=== PATIENT | female | born 1940 | race Caucasian/White ===

== ENCOUNTER 2016-10-22 08:33 | Day surgery (SDC) | payer MEDICARE ==
[~2016-10-22 08:33] MED LIST: EPINEPHRINE INJ 1 MG/10 ML DISP.SYRIN ONE; FLUMAZENIL INJ 0.5 MG/5 ML VIAL IV ONE; GLUCAGON,HUMAN RECOMB 1 MG INJ ONE; GLYCOPYRROLATE INJ 0.4 MG/2 ML VIAL ONE; MIDAZOLAM 2 MG/2 ML INJ ONE; NALOXONE HCL INJ/PF 0.4 MG/1 ML SDV ONE; ONDANSETRON HCL INJ/PF 4 MG/2 ML SDV ONE; PROMETHAZINE HCL INJ 25 MG/1 ML VIAL ONE
[2016-10-22] MEDS: FENTANYL CITRATE INJ/PF 100 MCG/2 ML AMPUL ONE ×2 (09:30→09:42)
--- NOTE | 2016-10-22 10:09 | Operative Report ---
Operative Report DATE OF SURGERY: 10/22/16 PREOPERATIVE DIAGNOSIS: Personal history of colon polyps POSTOPERATIVE DIAGNOSIS: Extensive diverticulosis of the sigmoid colon OPERATION: Total colonoscopy cecum with photodocumentation SURGEON: KRISTOPHER LOZANO ANESTHESIA: Moderate Sedation TISSUE REMOVED OR ALTERED: None COMPLICATIONS: None ESTIMATED BLOOD LOSS: none INTRAOPERATIVE FINDINGS: See below PROCEDURE: Obtaining informed consent the patient was taken from the preoperative holding area to the main endoscopy suite where monitoring devices were attached to the patient. Plan and surgical timeout were conducted The patient was placed in the left lateral decubitus position with knees to chest. A perianal examination was performed. There was no visible or palpable anorectal pathology. Sphincter tone was felt to be normal. The flexible adult colonoscope was advanced through the anal rectal canal, all the way to the cecum. Utilization of the cecum was achieved and the ileocecal valve, the appendiceal orifice and transillumination of the anterior abdominal wall. This was an excellent study on the well-prepped bowel. The colonoscope was withdrawn slowly and methodically checked and the mucosa carefully. There was no evidence of tumor, stricture, bleeding or polyp. There were extensive sigmoid diverticuloses. The scope was slowly withdrawn through the anal rectal canal. Complete visualization of the rectum was achieved with photodocumentation. The scope was withdrawn to the patient's anus. The patient tolerated the procedure well and was taken to the recovery area in stable condition. For surveillance guidelines, patient did appropriate candidate for follow-up colonoscopy in 10 years
--- NOTE | 2016-10-22 10:10 | PDOC DISCHARGE SUMMARY ---
Discharge Summary (SDC) - Discharge Final Diagnosis: Sigmoid diverticulosis Date of Surgery: 10/22/16 Discharge Date: 10/22/16 Condition: Good Treatment or Instructions: [facility] [place] [id number] POST ENDOSCOPY DISCHARGE INSTRUCTIONS 1. Diet: Start clear liquids that a regular diet as tolerated. 2. Resume all preoperative medications. All oral anticoagulants and aspirins can be resumed 24 hours after procedure. 3. If a polypectomy was performed some bleeding per rectum may occur. This should stop within 3 days. If not, please contact the office. 4. If you had a colonoscopy you may experience some bloating and delayed return of normal bowel function for several days, your regular bowel movement pattern should resume within a week. 5. Please contact [facility] at to make an appointment with Dr. Fields for 1 to 3 weeks following procedure. 6. If you have any questions or concerns regarding your care,treatment plan or follow up, please contact our office. 7. Per clinical guidelines we recommend you undergo a repeat colonoscopy in 10 years. Discharge Diet: As Tolerated Discharge Activity: Activity As Tolerated Home Care Assistance: None Needed Report the Following to Your Physician Immediately: Shortness of Breath, Increase in Pain, Fever over 101 Degrees
[2016-10-22 11:25] VITALS: BP 119/64
== END 2016-10-22 11:05 | disposition home or self-care (01) ==
LOC: END 08:33
PROVIDERS: ATTEND Surgery
PROC: 0DJD8ZZ Inspection of Lower Intestinal Tract, Via Natural or Artificial Opening Endoscopic (ICD-10-PCS; principal; 2016-10-22 09:00)
DX: Z86.010 Personal history of colon polyps (principal); Z80.0 Family history of malignant neoplasm of digestive organs; K57.30 Diverticulosis of large intestine without perforation or abscess without bleeding; I48.91 Unspecified atrial fibrillation; I12.9 Hypertensive chronic kidney disease with stage 1 through stage 4 chronic kidney disease, or unspecified chronic kidney disease; N18.3 Chronic kidney disease, stage 3 (moderate); Z79.899 Other long term (current) drug therapy; Z80.3 Family history of malignant neoplasm of breast; Z88.8 Allergy status to other drugs, medicaments and biological substances
CPT/HCPCS: 45378; J2250; J0171; J3010; J1610; J2310; J2405; J2550; J3490

== ENCOUNTER 2017-07-16 08:11 | Emergency (ER) | payer MEDICARE ==
--- NOTE | 2017-07-16 08:58 | RADIOLOGY REPORT (SQ) ---
EXAM DESCRIPTION: KNEE RIGHT 3 VIEWS COMPLETED DATE/TIME: 07/16/2017 8:45 am REASON FOR STUDY: fall on right knee COMPARISON: None. NUMBER OF VIEWS: Three views. TECHNIQUE: AP, lateral, and sunrise patella radiographic images acquired of the right knee. LIMITATIONS: None. FINDINGS: MINERALIZATION: Normal. BONES: Question tiny acute avulsion fragment off the lateral tibial spine, marked with an arrow. JOINT: Small suprapatellar knee joint effusion SOFT TISSUES: No soft tissue swelling. No radio-opaque foreign body. OTHER: No other significant finding. IMPRESSION: Question tiny avulsion fragment off the lateral tibial spine, with small knee joint effu pietro. This could indicate cruciate ligament injury. TECHNICAL DOCUMENTATION: JOB ID: [id number] [employer]- All Rights Reserved
--- NOTE | 2017-07-16 09:13 | ER Document Report ---
ED General - General Chief Complaint: Knee Injury Stated Complaint: KNEE INJURY Time Seen by Provider: 07/16/17 08:28 TRAVEL OUTSIDE OF THE [place] IN LAST 30 DAYS: No - HPI Patient complains to provider of: Right knee injury Notes: Patient coming in for evaluation of right knee injury. Patient states that she fell on July 02 noticed that her kneecap was to the lateral side of her knee however when she strained her leg out this came back in the place. Patient has had swelling to the right leg since that time also states that her knee feels unstable. Patient states she has been taken Tylenol for pain. Denies any other trauma denies any fevers chills nausea vomiting loss consciousness or any other symptoms at this time. - Related Data Allergies/Adverse Reactions: Fukgczt-Lfs-Lgz Reductase Inhibitor Allergy (Mild, Verified 07/16/17 08:12) Stiffness in joints Past Medical History - Social History Smoking Status: Never Smoker Chew tobacco use (# tins/day): No Frequency of alcohol use: None Drug Abuse: None Family History: Reviewed & Not Pertinent Patient has suicidal ideation: No Patient has homicidal ideation: No - Past Medical History Cardiac Medical History: Reports: Hx Atrial Fibrillation, Hx Coronary Artery Disease, Hx Hypertension Denies: Hx Heart Attack Pulmonary Medical History: Denies: Hx Asthma, Hx Bronchitis, Hx COPD, Hx Pneumonia Neurological Medical History: Denies: Hx Cerebrovascular Accident, Hx Seizures Renal/ Medical History: Denies: Hx Peritoneal Dialysis Musculoskeltal Medical History: Reports Hx Arthritis - GENERALIZED Past Surgical History: Reports: Hx Hysterectomy, Other - Cataract - Immunizations Hx Diphtheria, Pertussis, Tetanus Vaccination: Yes Hx Pneumococcal Vaccination: 06/02/16 Review of Systems - Review of Systems Constitutional: No symptoms reported EENT: No symptoms reported Cardiovascular: No symptoms reported Respiratory: No symptoms reported Gastrointestinal: No symptoms reported Genitourinary: No symptoms reported Female Genitourinary: No symptoms reported Musculoskeletal: Other - Knee pain Skin: No symptoms reported Hematologic/Lymphatic: No symptoms reported Neurological/Psychological: No symptoms reported Physical Exam - Vital signs Vitals: Temp Pulse Resp BP Pulse Ox 97.7 F 85 16 150/73 H 99 07/16/17 08:16 07/16/17 08:16 07/16/17 08:16 07/16/17 08:16 07/16/17 08:16 Interpretation: Normal - General General appearance: Appears well, Alert - HEENT Head: Normocephalic, Atraumatic Eyes: Normal Pupils: PERRL - Respiratory Respiratory status: No respiratory distress - Cardiovascular Rhythm: Regular Heart sounds: Normal auscultation Murmur: No - Abdominal Distension: No distension - Extremities General upper extremity: Normal inspection, Nontender, Normal color, Normal ROM , Normal temperature General lower extremity: Normal inspection, Nontender, Normal color, Normal ROM , Normal temperature, Normal weight bearing, Other - Notes was a tenderness or laxity on valgus varus anterior posterior drawer testing. There is swelling to the right leg from the distal thigh down to the ankle. There is no calf tenderness. Pulses are intact. Swelling trace to 1+. No: Noa's sign - Neurological Neuro grossly intact: Yes Cognition: Normal Orientation: AAOx4 [place] Coma Scale Eye Opening: Spontaneous Genevieve Coma Scale Verbal: Oriented [place] Coma Scale Motor: Obeys Commands Genevieve Coma Scale Total: 15 Speech: Normal Motor strength normal: LUE, RUE, LLE, RLE Sensory: Normal - Psychological Associated symptoms: Normal affect, Normal mood - Skin Skin Temperature: Warm Skin Moisture: Dry Skin Color: Normal Course - Re-evaluation Re-evalutation: 07/16/17 12:36 X-ray shows an avulsion fracture of the knee more consistent with a ligamentous injury. Patient was placed in a Lucas wrap to give extra support offered crutches however patient declined. Encouraged patient follow-up with her physician or title curative specialist for further evaluation more or less a injury to the ACL PCL of the knee she was encouraged to continue to take Tylenol - Vital Signs Vital signs: Temp Pulse Resp BP Pulse Ox 97.8 F 67 18 123/65 100 07/16/17 09:24 07/16/17 09:24 07/16/17 09:24 07/16/17 09:24 07/16/17 09:24 Discharge - Discharge Clinical Impression: Avulsion fracture of the tibia Instructions: Use of Crutches ([facility]), Ice & Elevation ([facility]), Suspected Internal Knee Injury ([facility]) Additional Instructions: Your x-ray shows a avulsion fracture of the tibia is more likely consistent with a ACL or PCL injury. I highly recommend following up with your primary care physician and the orthopedic doctor provided. Return to the ER if her symptoms worsen. We recommend using the Lucas wrap to help out with extra support. Also make sure he ice and elevate your leg. I would continue with Tylenol Motrin for pain control. Referrals: BAILEY DUBOIS MD [Primary Care Provider] - Follow up as needed CECILIA NAM MD [ACTIVE STAFF] - Follow up as needed (call today for appointment)
[2017-07-16 09:29] VITALS: BP 123/65
== END 2017-07-16 09:24 | disposition home or self-care (01) ==
LOC: ER 08:11
DX: S82.201A Unspecified fracture of shaft of right tibia, initial encounter for closed fracture (principal); M25.561 Pain in right knee; M79.89 Other specified soft tissue disorders; X58.XXXA Exposure to other specified factors, initial encounter
CPT/HCPCS: 99283

== ENCOUNTER 2019-01-08 18:02 | Emergency (ER) | payer MEDICARE ==
--- NOTE | 2019-01-08 19:08 | ER Document Report ---
ED General - General Chief Complaint: Snake Bite Stated Complaint: SNAKE BITE Time Seen by Provider: 01/08/19 19:05 Primary Care Provider: BAILEY DUBOIS MD [Primary Care Provider] - Follow up as needed Notes: Patient is an 79-year-old female who presents after being bit on the right hand by a copperhead while gardening just prior to arrival. States the bite occurred approximate 1.5 hours prior to the time of my assessment. States that she felt an immediate thump against her hand and since then has had a very mild, stinging, throbbing pain to the base of her thumb where she was bit. She has not noticed any increasing swelling or spreading redness of the arm. Nothing is been noted to improve or worsen the pain which she does described as being very mild in nature. Denies any difficulty breathing, nausea, vomiting, diaphoresis or chest pain. No history of similar injuries in the past. Does arrive by EMS. TRAVEL OUTSIDE OF THE [place] IN LAST 30 DAYS: No - Related Data Allergies/Adverse Reactions: Ampzdwp-Zij-Ydz Reductase Inhibitor Allergy (Mild, Verified 01/08/19 18:03) Stiffness in joints Past Medical History - General Information source: Patient - Social History Smoking Status: Never Smoker Frequency of alcohol use: None Drug Abuse: None Lives with: Spouse/Significant other Family History: Reviewed & Not Pertinent Patient has suicidal ideation: No Patient has homicidal ideation: No - Past Medical History Cardiac Medical History: Reports: Hx Atrial Fibrillation, Hx Coronary Artery Disease, Hx Hypertension Denies: Hx Heart Attack Pulmonary Medical History: Denies: Hx Asthma, Hx Bronchitis, Hx COPD, Hx Pneumonia Neurological Medical History: Denies: Hx Cerebrovascular Accident, Hx Seizures Renal/ Medical History: Denies: Hx Peritoneal Dialysis Musculoskeletal Medical History: Reports Hx Arthritis - GENERALIZED Past Surgical History: Reports: Hx Hysterectomy, Other - Cataract - Immunizations Hx Diphtheria, Pertussis, Tetanus Vaccination: Yes Hx Pneumococcal Vaccination: 06/02/16 Review of Systems - Review of Systems Notes: Constitutional: Negative for fever. HENT: Negative for sore throat. Eyes: Negative for visual changes. Cardiovascular: Negative for chest pain. Respiratory: Negative for shortness of breath. Gastrointestinal: Negative for abdominal pain, vomiting or diarrhea. Genitourinary: Negative for dysuria. Musculoskeletal: Positive right hand injury Skin: Positive for puncture wound to the right hand Neurological: Negative for headaches, weakness or numbness. 10 point ROS negative except as marked above and in HPI. Physical Exam - Vital signs Vitals: Temp Pulse Resp BP Pulse Ox 98.3 F 101 H 20 185/91 H 95 01/08/19 18:03 01/08/19 18:03 01/08/19 18:03 01/08/19 18:03 01/08/19 18:03 Interpretation: Hypertensive, Tachycardic Notes: PHYSICAL EXAMINATION: GENERAL: Well-appearing, well-nourished and in no acute distress. HEAD: Atraumatic, normocephalic. EYES: Pupils equal round and reactive to light, extraocular movements intact, sclera anicteric, conjunctiva are normal. ENT: nares patent, oropharynx clear without exudates. Moist mucous membranes. NECK: Normal range of motion, supple without lymphadenopathy LUNGS: Breath sounds clear to auscultation bilaterally and equal. No wheezes rales or rhonchi. HEART: Regular rate and rhythm without murmurs ABDOMEN: Soft, nontender, normoactive bowel sounds. No guarding, no rebound. No masses appreciated. EXTREMITIES: Normal range of motion, no pitting or edema. No cyanosis. NEUROLOGICAL: No focal neurological deficits. Moves all extremities spontaneously and on command. PSYCH: Normal mood, normal affect. SKIN: Warm, Dry, normal turgor, 2 small puncture wounds to the dorsal base of the right thumb with some surrounding ecchymosis although no significant induration or swelling Course - Re-evaluation Re-evalutation: 01/08/19 19:07 Patient presents with a copperhead bite to her right dorsal hand at the level of her thumb. Bite did occur approximately 1-1/2 hours prior to presentation. Patient did bring a snake with her and this is a copperhead. Thankfully this was a dry bite. There is no evidence of swelling to the hands, no progression of the area of erythema or bruising and no significant pain to the area. Patient was observed for 1 hour without any advancement of the area of redness and no swelling. She also continue to be without any pain. Tetanus is already up-to-date. Area was cleaned and dressed. At this time will discharge with return precautions and follow-up recommendations. Verbal discharge instructions given a the bedside and opportunity for questions given. Medication warnings reviewed. Patient is in agreement with this plan and has verbalized understanding of return precautions and the need for primary care follow-up in the next 24-72 hours. - Vital Signs Vital signs: Temp Pulse Resp BP Pulse Ox 98.3 F 101 H 29 H 136/79 H 98 01/08/19 18:03 01/08/19 18:03 01/08/19 19:01 01/08/19 19:00 01/08/19 19:01 Discharge - Discharge Clinical Impression: Bite, snake, venomous Qualifiers: Encounter type: initial encounter Injury intent: accidental or unintentional Qualified Code(s): T63.001A - Toxic effect of unspecified snake venom, accidental (unintentional), initial encounter Injury of right hand Qualifiers: Encounter type: initial encounter Qualified Code(s): S69.91XA - Unspecified injury of right wrist, hand and finger(s), initial encounter Condition: Good Disposition: HOME, SELF-CARE Additional Instructions: You were bit by a copperhead today and thankfully this is a dry bite. This means that the copper head did not actually inject venom into your hand when it bit. This is actually quite common with copper heads. I advise you to clean the area with soap and water twice daily and cover the area with bacitracin. For pain I would take Tylenol 1000 mg every 6 hours as needed. Return if you develop fever greater than 100.4 F, rapid progression of swelling to the area, pass out, develop chest pain, shortness of breath, or have any other symptoms that are worrisome to you. Referrals: BAILEY DUBOIS MD [Primary Care Provider] - Follow up as needed
[2019-01-08 19:26] VITALS: BP 136/79
== END 2019-01-08 19:26 | disposition home or self-care (01) ==
LOC: ER 18:02
DX: T63.091A Toxic effect of venom of other snake, accidental (unintentional), initial encounter (principal); M79.644 Pain in right finger(s); I25.10 Atherosclerotic heart disease of native coronary artery without angina pectoris; I10 Essential (primary) hypertension; Z88.8 Allergy status to other drugs, medicaments and biological substances
CPT/HCPCS: 99283

== ENCOUNTER 2019-01-26 11:24 | Emergency (ER) | payer MEDICARE ==
--- NOTE | 2019-01-26 12:51 | RADIOLOGY REPORT (SQ) ---
EXAM DESCRIPTION: ANKLE LEFT COMPLETE COMPLETED DATE/TIME: 01/26/2019 12:20 pm REASON FOR STUDY: twisted ankle 1 week ago COMPARISON: None. NUMBER OF VIEWS: Three views. TECHNIQUE: AP, lateral, and oblique radiographic images acquired of the left ankle. LIMITATIONS: None. FINDINGS: MINERALIZATION: Normal. BONES: No acute fracture or dislocation. No worrisome bone lesions. JOINTS: No effusions. SOFT TISSUES: Mild soft tissue swelling around the ankle. OTHER: No other significant finding. IMPRESSION: Soft tissue swelling. No fracture. TECHNICAL DOCUMENTATION: JOB ID: [id number] [email or web address]- All Rights Reserved Reading location - IP/workstation name: [email or web address]
--- NOTE | 2019-01-26 14:01 | RADIOLOGY REPORT (SQ) ---
EXAM DESCRIPTION: FOOT LEFT COMPLETE COMPLETED DATE/TIME: 01/26/2019 1:23 pm REASON FOR STUDY: brusing/pain dorsal foot s/p fall COMPARISON: None. NUMBER OF VIEWS: Three views. TECHNIQUE: AP, lateral and oblique radiographic images acquired of the left foot. LIMITATIONS: None. FINDINGS: MINERALIZATION: Normal. BONES: Tiny acute avulsion fracture off the dorsal aspect of the navicular bone, likely due to tibial is anterior tendon avulsion. No worrisome bone lesions. JOINTS: No effusions. SOFT TISSUES: Diffuse dorsal soft tissue swelling. No foreign body. OTHER: No other significant finding. IMPRESSION: Tiny avulsion fragments off the dorsal aspect of the tarsal navicular bone likely relate d to tibialis anterior distal tendon avulsion. Dorsal soft tissue swelling over the left foot. TECHNICAL DOCUMENTATION: JOB ID: [id number] [employer]- All Rights Reserved Reading location - IP/workstation name: [email or web address]
--- NOTE | 2019-01-26 14:31 | ER Document Report ---
HPI - HPI Time Seen by Provider: 01/26/19 12:46 Pain Level: 1 Notes: Patient is an otherwise healthy 79-year-old female presented to the emergency department chief complaint of left foot and ankle pain. Patient reports she tripped and fell. She denies striking her head, denies any loss of consciousness. - REPRODUCTIVE Reproductive: DENIES: : Past Medical History - General Information source: Patient - Social History Smoking Status: Never Smoker Chew tobacco use (# tins/day): No Frequency of alcohol use: None Drug Abuse: None Family History: Reviewed & Not Pertinent Patient has suicidal ideation: No Patient has homicidal ideation: No - Past Medical History Cardiac Medical History: Reports: Hx Atrial Fibrillation, Hx Coronary Artery Disease, Hx Hypertension Denies: Hx Heart Attack Pulmonary Medical History: Denies: Hx Asthma, Hx Bronchitis, Hx COPD, Hx Pneumonia Neurological Medical History: Denies: Hx Cerebrovascular Accident, Hx Seizures Renal/ Medical History: Denies: Hx Peritoneal Dialysis Musculoskeletal Medical History: Reports Hx Arthritis - GENERALIZED Past Surgical History: Reports: Hx Hysterectomy, Other - Cataract - Immunizations Hx Diphtheria, Pertussis, Tetanus Vaccination: Yes Hx Pneumococcal Vaccination: 06/02/16 Vertical Provider Document - CONSTITUTIONAL Notes: PHYSICAL EXAMINATION: GENERAL: Well-appearing, well-nourished and in no acute distress. HEAD: Atraumatic, normocephalic. EYES: Pupils equal round extraocular movements intact, conjunctiva are normal. ENT: Nares patent NECK: Normal range of motion LUNGS: No respiratory distress Musculoskeletal: Normal range of motion, swelling and ecchymosis noted over the left third, fourth, fifth toes. Strong dorsalis pedis pulse. Cap refill less than 3 seconds distal to area of concern, normal motor and sensation. NEUROLOGICAL: Normal speech, normal gait. PSYCH: Normal mood, normal affect. SKIN: Warm, Dry, normal turgor, no rashes or lesions noted. - INFECTION CONTROL TRAVEL OUTSIDE OF THE [place] IN LAST 30 DAYS: No Course - Re-evaluation Re-evalutation: Tiny avulsion fractures noted over the left navicular. Patient declines walking shoe which she states she already has one at home and she is having no difficulty walking. Patient will be given information for orthopedics for follow-up. Patient verbalizes understanding and agreement with this plan. - Vital Signs Vital signs: Temp Pulse Resp BP Pulse Ox 98.1 F 76 16 154/88 H 100 01/26/19 11:32 01/26/19 11:32 01/26/19 11:32 01/26/19 11:32 01/26/19 11:32 Discharge - Discharge Clinical Impression: Navicular fracture of ankle Qualifiers: Encounter type: initial encounter Fracture type: closed Fracture alignment: nondisplaced Laterality: left Qualified Code(s): S92.255A - Nondisplaced fracture of navicular [scaphoid] of left foot, initial encounter for closed fracture Condition: Stable Disposition: HOME, SELF-CARE Additional Instructions: Please call orthopedics to schedule a follow-up appointment for your navicular fracture. Ice and elevate the extremity as discussed. You may take Tylenol or ibuprofen for pain. Try to keep as much weight off of it as possible until you see orthopedics. You may try wearing the walking shoe that you have at home since you have opted out of a new one here. Referrals: MARIIA ZAMAN, [ACTIVE STAFF] - Follow up as needed
[2019-01-26 14:36] VITALS: BP 136/66
== END 2019-01-26 14:38 | disposition home or self-care (01) ==
LOC: ER 11:24
DX: S92.255A Nondisplaced fracture of navicular [scaphoid] of left foot, initial encounter for closed fracture (principal); M79.672 Pain in left foot; M25.572 Pain in left ankle and joints of left foot; W01.0XXA Fall on same level from slipping, tripping and stumbling without subsequent striking against object, initial encounter; I48.91 Unspecified atrial fibrillation; I25.10 Atherosclerotic heart disease of native coronary artery without angina pectoris; I10 Essential (primary) hypertension; Z90.710 Acquired absence of both cervix and uterus
CPT/HCPCS: 99283